=== PATIENT | female | born 1970 | race Caucasian/White ===

== ENCOUNTER 2017-05-01 12:49 | Emergency (ER) | payer BC ==
[2017-05-01 13:23] LABS: Urine Bilirubin Negative (NEGATIVE); Urine Blood Negative /ul (NEGATIVE); Urine Ketone Negative (NEGATIVE); Urine Nitrite Negative (NEGATIVE); Urine Protein Negative (NEGATIVE); Urine Urobilinogen Normal (NORMAL); Urine pH 5.5 pH (5.0-7.0)
[2017-05-01] MEDS ORDERED: KETOROLAC TROMETHAMINE 30 MG/ML VIAL IV ONE (13:29)
[2017-05-01 13:31] LABS: Urine Appearance Clear; Urine Bacteria None Seen; Urine Color Yellow; Urine RBC 0-5 /hpf (0-5); Urine WBC None Seen /hpf (0-5)
[2017-05-01 13:49] LABS: Hematocrit 42.5 % (37.0-47.0); Hemoglobin 14.4 gm/dL (12.5-16.0); Mean Cell Volume 80.2 fl (78-100); Mean Corpuscular Hemoglobin 27.2 pg (27-31); Mean Corpuscular Hgb Conc 33.9 g/dl (32-36); Mean Platelet Volume 10.1 fl (6.0-9.5); Neutrophil # 4.8 K/mm3 (1.3-6.0); Neutrophil % 53.8 % (42-75.0); Platelet Count 250 K/mm3 (150-450); Red Cell Distribution Width 13.9 % (11.5-14.0); White Blood Count 8.9 K/mm3 (4.0-10.5)
[2017-05-01 14:02] LABS: Albumin * 3.6 gm/dl (3.4-5.0); Anion Gap 14.4 mmol/L (6.8-13.8); BUN/Creatinine Ratio 11.8 (9.0-21.6); Bilirubin, Total 0.3 mg/dL (0.0-1.1); Ca. Corrected For Albumin 9.3 mg/dL (8.4-10.2); Calcium * 9.3 mg/dL (7.9-10.9); Carbon Dioxide 27.3 mmol/L (24-32.6); Potassium 3.7 mmol/L (3.4-4.6)
[2017-05-01] MEDS ORDERED: KETOROLAC TROMETHAMINE 30 MG/ML VIAL ONE (14:10)
[2017-05-01] MEDS ORDERED: ACYCLOVIR 800 MG TABLET PO ONE (15:09)
--- NOTE | 2017-05-01 15:09 | ERNOTE ---
Abdominal HPI - Narrative Date of Service: 05/01/17 - General Chief Complaint: Abdominal Pain Time Seen by Provider: 05/01/17 13:21 Source: patient, RN notes reviewed Exam Limitations: no limitations - Immun/Allergies/Home Medications Immunizatons: IMMUNIZATION HX Immunizations Up to Date Yes History of Influenza Vaccine No Hx Pneumococcal Vaccination No Allergies/Adverse Reactions: Allergies codeine Allergy (Verified 05/01/17 13:05) cortisone Adverse Reaction (Verified 05/01/17 13:05) Penicillins Adverse Reaction (Verified 05/01/17 13:05) Home Medications: HOME MEDICATIONS Acyclovir 800 mg PO 5XD #35 tablet 05/01/17 [Last Taken Unknown] Atenolol/Chlorthalidone [Atenolol-Chlorthalidone 50-25] 0.5 each PO DAILY [Last Taken Unknown] Estradiol [Divigel] 1 gm TD DAILY 05/01/17 [Last Taken Unknown] FLUoxetine HCL [Prozac] 20 mg PO DAILY 05/01/17 [Last Taken Unknown] Ibuprofen [Motrin] 600 mg PO Q6H PRN #40 tab 05/01/17 [Last Taken Unknown] Omeprazole 20 mg PO DAILY 05/01/17 [Last Taken Unknown] Pravastatin Sodium [Pravachol] 20 mg PO DAILY 05/01/17 [Last Taken Unknown] metFORMIN HCL [Metformin HCl] 500 mg PO DAILY 05/01/17 [Last Taken Unknown] traMADol HCL [Ultram] 50 mg PO Q6H PRN #30 tablet 05/01/17 [Last Taken Unknown] - History of Present Illness Narrative: Sonja is a 47 year old female who presents to the ED for pain in her right lateral and posterior lower ribs that began without incident last evening. She has been taking OTC pain relievers without improvement. She has no additional symptoms. She had been having back pain after an incident moving a washing machine and seeing the chiropractor. This was in a different location and had been improving. Date (Duration): 04/30/17 Timing: constant Quality: sharpness Activities at Onset: none Modifying Factors - (Improves): Absent: analgesics, rest, sitting up Modifying Factors - (Worsens): Absent: breathing, coughing, movement Prior Abdominal Problems: Present: none Prior Treatment: Absent: recently seen Review of Systems - Review of Systems Constitutional: Absent: recent illness, fever, chills EYE: Present: no symptoms reported ENT: Present: no symptoms reported Respiratory: Absent: shortness of breath, cough Cardiology: Absent: chest pain, palpitations, syncope Gastrointestinal/Abdominal: Absent: nausea, vomiting, abdominal pain Genitourinary: Absent: dysuria, hematuria Musculoskeletal: Absent: muscle pain, joint pain Skin: Absent: rash, lesions, lumps Neurological: Absent: headache, dizziness/light-headedness, weakness, numbness, tingling Endocrine: Present: no symptoms reported Hematologic/Lymphatic: Absent: easy bruising, easy bleeding Psych: Present: no symptoms reported - Patient's Past Medical History Patient History - Medical: Anxiety, Diabetes Type 2, Fibromyalgia, Other Patient History - Cardiac/Respiratory: Hypertension, Hyperlipidemia Patient History - Cancer: No Hx of Cancer Patient History - Surgical Procedures: Cholecystectomy, Hysterectomy, T & A, Other Patient History - Other: None LMP (females 10-50): hysterectomy - Social History Living Situations: spouse Psych History: Hx of Anxiety, Current tx/ever been on anti-depressants or anti- anxiety meds Smoking Status: Never smoker Alcohol Use: none Drug Use: none - Immunizations Immunizations Up to Date: Yes Hx Pneumococcal Vaccination: No History of Influenza Vaccine: No Physical Exam - Physical Exam General Appearance: Present: wd/wn, alert, mild distress, obese Head Exam: Present: normal inspection Eye Exam: Normal inspection: bilateral Ears, Nose, Throat: Present: normal ENT inspection, normal pharynx Neck: Present: normal inspection, nontender, supple Respiratory: Present: no respiratory distress, normal breath sounds, no accessory muscle use, lungs clear, chest tenderness - Right lateral and posterior lower rib region Cardiovascular/Chest: Present: no murmur, normal peripheral pulses, bradycardia Gastrointestinal/Abdominal: Present: normal bowel sounds, nontender, nondistended, soft Extremity Exam: Present: normal inspection, no edema Neurological Exam: Present: alert, oriented, normal mood/affect, no motor/ sensory deficits Skin Exam: Present: normal color, warm/dry, other - Severe pain in effected region with light palpation ED Progress - Results and Orders Patient's Lab Results:: I have reviewed the patient's lab results. - Vital Signs Patient's Vital Signs:: I have reviewed the patient's vital signs. Vital Signs: Vital Signs 05/01/17 12:58 Temperature 36.1 C L Pulse Rate 58 L Respiratory 16 Rate Blood Pressure 150/73 O2 Sat by Pulse 99 Oximetry - Progress/Reassessment Chief Complaint: Abdominal Pain Progress:: Improved Plan - Plan Plan: Pain improved somewhat with Toradol, patient declines additional pain medication for now. Given the location of the pain and how severe it is with very light palpation of the skin, I suspect she is having prodromal pain r/t herpes zoster. She did have the chicken pox as a child. Acyclovir started. Rx for tramadol given for pain d/t patient's codeine allergy - she is afraid to take anything stronger. Departure Clinical Impression: Herpes zoster Qualifiers: Herpes zoster complications: without complications Qualified Code(s): B02.9 - Zoster without complications - Departure Disposition: Home self-care Condition: Stable Instructions: Shingles, [id number] Additional Instructions: Take ibuprofen with food Tylenol (acetaminophen) can make your liver function worse Avoid contact with children under 1 year of age or anyone who has not had the chicken pox or varicella vaccine Follow up as needed Prescriptions: Acyclovir 800 mg PO 5XD #35 tablet Ibuprofen [Motrin] 600 mg PO Q6H PRN #40 tab PRN Reason: Pain traMADol HCL [Ultram] 50 mg PO Q6H PRN #30 tablet PRN Reason: Pain
[2017-05-01] MEDS ORDERED: ACYCLOVIR 800 MG TABLET ONE (15:28)
[2017-05-01 15:31] VITALS: BP 127/58
== END 2017-05-01 15:31 | disposition home or self-care (01) ==
LOC: ER 12:49
DX: B02.9 Zoster without complications (principal); E11.9 Type 2 diabetes mellitus without complications; I10 Essential (primary) hypertension; F41.9 Anxiety disorder, unspecified